=== PATIENT | female | born 1990 | race Caucasian/White ===

== ENCOUNTER 2025-04-25 16:16 | Emergency (ER) | payer BC ==
[2025-04-25] MEDS: Lidocaine 1% 10 ML MDV INJECT ONE (18:00)
[2025-04-25] MEDS: Bacitracin Oint 1 GM U/D Packet TOP ONE (18:00)
== END 2025-04-25 18:25 | disposition home or self-care (01) ==
LOC: JP.ED 16:16
DX: S61.214A Laceration without foreign body of right ring finger without damage to nail, initial encounter (principal); E10.9 Type 1 diabetes mellitus without complications; Z79.4 Long term (current) use of insulin; Z90.49 Acquired absence of other specified parts of digestive tract; Z91.048 Other nonmedicinal substance allergy status; Z88.0 Allergy status to penicillin; Z91.013 Allergy to seafood; W26.8XXA Contact with other sharp object(s), not elsewhere classified, initial encounter
CPT/HCPCS: 12001; 99283; J2003